=== PATIENT | female | born 1965 | race African-American/Black ===

== ENCOUNTER 2018-12-07 12:27 | Emergency (ER) | payer BC ==
[2018-12-07] MEDS ORDERED: Ondansetron ODT 4 MG TAB ONE (12:37)
[2018-12-07 12:55] LABS: #Eosinphils 0.1 thou/uL (0.0-0.7); #Lymphocytes 1.4 thou/uL (1.20-3.40); #Monocytes 0.3 thou/uL (0.11-0.59); #Neutrophils 5.1 thou/uL (1.40-6.50); %Basophils 0.1 % (0.0-1.0); %Lymphocytes 20.1 % (21.0-51.0); %Monocytes 3.7 % (0.0-10.0); %Neutrophils 75.1 % (42.0-75.0); Hemoglobin 13.2 g/dL (12.0-16.0); Mean Corpuscular HGB CONC 32.4 g/dL (32.0-36.0); Mean Corpuscular Hemoglobin 28.8 pg (27.0-31.0); Mean Corpuscular Volume 88.9 fL (78.0-98.0); Mean Platelet Volume 8.2 fL (7.4-10.4); Platelet Count 318 thou/uL (130-400); RBC Distribution Width 12.2 % (11.5-14.5); Red Blood Cell (RBC) Count 4.58 mill/uL (4.20-5.40); White Blood Cell (WBC) Count 6.7 thou/uL (4.8-10.8)
[2018-12-07 13:17] LABS: ALT (SGPT) 11 U/L (8-55); AST (SGOT) 17 U/L (5-34); Albumin 4.3 g/dL (3.5-5.0); Alkaline Phosphatase 85 U/L (40-150); Anion Gap 11 mmol/L (10-20); BUN (Urea Nitrogen) 7 mg/dL (9.8-20.1); Bilirubin, Total 0.4 mg/dL (0.2-1.2); Calc. Creatinine Clearance 0 mL/min (70-130); Calcium 9.6 mg/dL (7.8-10.44); Carbon Dioxide 27 mmol/L (22-29); Chloride 102 mmol/L (98-107); Estimated GFR-MDRD 90; Globulin 3.1 g/dL (2.4-3.5); Glucose 184 mg/dL (70-105); Lipase 51 U/L (8-78); Potassium 3.6 mmol/L (3.5-5.1); Protein, Total 7.4 g/dL (6.0-8.3); Sodium 136 mmol/L (136-145)
[2018-12-07] MEDS ORDERED: Meclizine HCl 25 MG TAB ONE ×2 (15:11→15:13)
== END 2018-12-07 15:55 | disposition home or self-care (01) ==
LOC: ERS 12:27
DX: R42 Dizziness and giddiness (principal); R11.2 Nausea with vomiting, unspecified; D50.9 Iron deficiency anemia, unspecified
CPT/HCPCS: 36415; 80053; 83690; 85025; 99284; Q0162

== ENCOUNTER 2019-01-18 08:53 | Outpatient (CLI) | payer BC ==
--- NOTE | 2019-01-18 10:12 | MRI ---
MRI Brain W WO Con: 01/18/2019 12:00 AM CLINICAL HISTORY: Vertigo with nausea, vomiting. COMPARISON: None. FINDINGS: Extra axial spaces: Normal in size and morphology for the patient's age. Hemorrhage: None. Ventricular system: Normal in size and morphology for the patient's age. Basal cisterns: Normal. Cerebral parenchyma: Normal. Midline shift: None. Cerebellum: Normal. Brainstem: Normal. Paranasal sinuses:Clear IAC: Thin linear, non mass-like enhancement of the cisternal segment of the right 7th/8th cranial ner ve complex is present. IMPRESSION:Thin linear enhancement of the cisternal segment of the 7th/8th cranial nerve complex. Thi s may relate to an inflammatory process. No mass-like enhancement of this region is identified. As a conservative measure, recommend short-term follow-up upon resolution of acute symptoms to document resolution of imaging findings.
[2019-01-18] MEDS ORDERED: Gadobenate Dimeglumine 529 MG/1 ML (20ML VIAL) ONE (10:30)
== END 2019-01-18 08:54 | disposition home or self-care (01) ==
LOC: BICMRI 08:53
PROVIDERS: ATTEND Specialist
DX: R42 Dizziness and giddiness (principal)
CPT/HCPCS: 70553; A9577

== ENCOUNTER 2019-12-28 09:47 | Emergency (ER) | payer BC, SELFPAY | END 2019-12-28 11:28 | disposition home or self-care (01) | LOC: ERS 09:47 | DX: M54.5 Low back pain (principal); D50.9 Iron deficiency anemia, unspecified | CPT/HCPCS: 99283 ==

== ENCOUNTER 2020-11-13 15:09 | Emergency (ER) | payer SELFPAY ==
[2020-11-13 16:44] LABS: #Eosinphils 0.1 thou/uL (0.0-0.7); #Lymphocytes 1.7 thou/uL (1.20-3.40); #Monocytes 0.4 thou/uL (0.11-0.59); %Basophils 0.5 % (0.0-1.0); %Eosinophils 2.3 % (0.0-10.0); %Lymphocytes 32.2 % (21.0-51.0); %Monocytes 7.8 % (0.0-10.0); %Neutrophils 57.2 % (42.0-75.0); Hemoglobin 14.4 g/dL (12.0-16.0); Mean Corpuscular HGB CONC 33.2 g/dL (32.0-36.0); Mean Corpuscular Hemoglobin 30.6 pg (27.0-31.0); Mean Corpuscular Volume 92.1 fL (78.0-98.0); Mean Platelet Volume 8.5 fL (7.4-10.4); Platelet Count 257 thou/uL (130-400); RBC Distribution Width 11.6 % (11.5-14.5); Red Blood Cell (RBC) Count 4.69 mill/uL (4.20-5.40); White Blood Cell (WBC) Count 5.3 thou/uL (4.8-10.8)
--- NOTE | 2020-11-13 16:59 | RAD ---
XR Chest 1 View Portable History: Headache and dizziness Comparison: Radiograph November 22, 2016 Findings: Mild lung hyperinflation. No confluent airspace consolidation, pneumothorax or effusion. No acute osseous abnormality. Impression: No acute intrathoracic abnormality.
[2020-11-13 17:15] LABS: ALT (SGPT) 15 U/L (8-55); AST (SGOT) 19 U/L (5-34); Albumin 4.2 g/dL (3.5-5.0); Alkaline Phosphatase 110 U/L (40-110); Anion Gap 12 mmol/L (10-20); BUN (Urea Nitrogen) 10 mg/dL (9.8-20.1); Bilirubin, Total 0.3 mg/dL (0.2-1.2); Calc. Creatinine Clearance 0 mL/min (70-130); Calcium 9.3 mg/dL (7.8-10.44); Carbon Dioxide 29 mmol/L (22-29); Chloride 102 mmol/L (98-107); Globulin 3.7 g/dL (2.4-3.5); Glucose 90 mg/dL (70-105); Potassium 4.4 mmol/L (3.5-5.1); Protein, Total 7.9 g/dL (6.0-8.3); Sodium 139 mmol/L (136-145)
[2020-11-13 17:19] LABS: BHCG - Serum Negative (NEGATIVE); Pregs Control Background? CLEAR/WHITE (CLR/WHITE); Pregs Control Bar Appear? YES (CONTROL BAR)
--- NOTE | 2020-11-13 17:23 | CT ---
Head CT without contrast 11/13/2020: COMPARISON: 05/29/2019 HISTORY: Altered mental status TECHNIQUE: Axial CT imaging at 5 mm intervals from vertex through skull base without contrast FINDINGS: The imaged paranasal sinuses and mastoid air cells are well-aerated. No displaced calvarial fracture, intracranial hemorrhage, midline shift, or mass effect. IMPRESSION: No acute findings.
[2020-11-13 17:30] LABS: CK (CPK) 54 U/L (29-168); Lipase 74 U/L (8-78)
[2020-11-13 18:11] LABS: Bilirubin Negative (Negative); Blood, Urine Negative (Negative); Clarity Clear (Clear); Glucose, Urine (Dipstick) Normal (Negative); Ketone, Urine Negative (Negative); Leukocyte Negative Leu/uL (Negative); Nitrite Negative (Negative); Protein, Urine (Dipstick) Negative (Neg-Trace); Specific Gravity, Urine 1.012 (1.002-1.036); Urobilinogen Normal mg/dL (Less than 2)
== END 2020-11-13 17:58 | disposition home or self-care (01) ==
LOC: ERS 15:09
DX: R42 Dizziness and giddiness (principal); R20.2 Paresthesia of skin; D50.9 Iron deficiency anemia, unspecified
CPT/HCPCS: 36415; 70450; 71045; 80053; 81003; 82550; 83690; 84484; 84703; 85025; 93005

== ENCOUNTER 2022-06-16 20:53 | Emergency (ER) | payer SELFPAY ==
[2022-06-16] MEDS ORDERED: Mag-Al 1200 mg/1200 mg/30 ML UDCUP ONE (23:27)
== END 2022-06-17 00:11 | disposition home or self-care (01) ==
LOC: ERS 20:53
DX: B34.9 Viral infection, unspecified (principal); K21.9 Gastro-esophageal reflux disease without esophagitis; Z20.822 Contact with and (suspected) exposure to COVID-19
CPT/HCPCS: 71045; J7620; U0003; U0005

== ENCOUNTER 2023-06-05 07:35 | Emergency (ER) | payer OTHER, SELFPAY ==
[2023-06-05 09:32] LABS: SARS-CoV-2 NAA Rapid Test DETECTED (NotDetected)
== END 2023-06-05 08:24 | disposition home or self-care (01) ==
LOC: ERS 07:35
DX: U07.1 COVID-19 (principal)
CPT/HCPCS: 99283